=== PATIENT | male | born 1960 | race Caucasian/White ===

== ENCOUNTER 2019-12-20 06:16 | Emergency (ER) | payer MEDICAID ==
[~2019-12-20] VITALS: Ht 167.6 cm; Wt 73.0 kg
[2019-12-20] MEDS ORDERED: HYDROCODONE/ACETAMINOPHEN 5/325MG TABLET PO ONE (07:15)
[2019-12-20] MEDS ORDERED: TETANUS, DIPHTHERIA, PERTUSSIS VAC/PF 0.5ML (>7YR OLD) IM ONE (07:15)
[2019-12-20] MEDS ORDERED: BACITRACIN ZINC OINT UDPKT TOP ONE (07:15)
[2019-12-20 08:45] VITALS: BP 144/66
== END 2019-12-20 08:46 | disposition home or self-care (01) ==
LOC: ER 06:16
DX: S02.2XXA Fracture of nasal bones, initial encounter for closed fracture (principal); S01.111A Laceration without foreign body of right eyelid and periocular area, initial encounter; Y04.0XXA Assault by unarmed brawl or fight, initial encounter; Y93.89 Activity, other specified; Y92.59 Other trade areas as the place of occurrence of the external cause; Y99.8 Other external cause status
CPT/HCPCS: 12011; 70486; 90471; 90715; 99284